=== PATIENT | female | born 1965 | race Caucasian/White ===

== ENCOUNTER 2018-01-12 17:31 | Emergency (ER) | payer MEDICARE ==
[~2018-01-12] VITALS: Ht 165.1 cm; Wt 84.1 kg
[~2018-01-12 17:31] MED LIST: NORCO 10/325 TA1 TA1 PO
[2018-01-12 17:39] VITALS: Ht 165.1 cm; Wt 84.1 kg
[2018-01-12] MEDS ORDERED: [UNRECOGNIZED DRUG - REMARK] (17:41)
[2018-01-12 19:48] VITALS: BP 132/69
== END 2018-01-12 19:52 | disposition home or self-care (01) ==
LOC: D.ER 17:31
DX: M54.5 Low back pain (principal); F17.200 Nicotine dependence, unspecified, uncomplicated

== ENCOUNTER → 2018-01-27 13:48 | Outpatient (CLI) | payer MEDICARE ==
[2018-01-12 17:39] VITALS: BMI 30.8
[~2018-01-27 13:48] MED LIST changes: +[UNRECOGNIZED DRUG - REMARK]
== END | disposition home or self-care (01) ==
LOC: D.MRI 13:48
DX: M54.16 Radiculopathy, lumbar region (principal)